=== PATIENT | male | born 1990 | race African-American/Black ===

== ENCOUNTER 2017-05-09 09:38 | Emergency (ER) | payer SELFPAY ==
--- NOTE | 2017-05-09 11:34 | EDPHYS ---
Physician Documentation [facility] Name: Delfin Gilliam Age: 26 yrs Sex: Male : 1990 Arrival Date: 05/09/2017 Time: 09:40 Bed 18 Private MD: ED Physician Huey Paul HPI: 05/09 10:25 This 26 yrs old Black Male presents to ER via Ambulatory with complaints of Sore cp Throat, Cough. 10:25 The patient presents with sore throat. The patient describes throat pain as constant. cp Onset: The symptoms/episode began/occurred 1 week(s) ago. Severity of symptoms: in the emergency department the symptoms are unchanged, despite home interventions. Historical: - Allergies: 09:56 No Known Allergies; ss - Home Meds: 09:56 None [Active]; ss - PMHx: :56 None; ss - PSHx: 09:56 None; ss - Immunization history:: Adult Immunizations unknown. - Social history:: Smoking status: Patient uses tobacco products, smokes one-half pack cigarettes per day. ROS: 10:30 Constitutional: Negative for body aches, chills, fever, poor PO intake. cp 10:30 Eyes: Negative for injury, pain, redness, and discharge. cp 10:30 ENT: Positive for sinus congestion, sore throat, Negative for drainage from ear(s), ear pain, difficulty swallowing, difficulty handling secretions. 10:30 Cardiovascular: Negative for chest pain, edema, palpitations. 10:30 Respiratory: Positive for cough, with green sputum, Negative for shortness of breath, wheezing. 10:30 Abdomen/GI: Negative for abdominal pain, vomiting, diarrhea, constipation, black/tarry stool, rectal bleeding. 10:30 Skin: Negative for cellulitis, rash. 10:30 Neuro: Negative for altered mental status, weakness. 10:30 All other systems are negative. Exam: 10:35 Constitutional: The patient appears in no acute distress, alert, awake, non-toxic, well cp developed, well nourished. 10:35 Head/face: Sinus tenderness, that is mild, is located over the right frontal sinus, cp left frontal sinus, right maxillary sinus and left maxillary sinus. 10:35 Eyes: Periorbital structures: appear normal, Pupils: equal, round, and reactive to light and accomodation, Conjunctiva: normal, no exudate, no injection, Sclera: no appreciated abnormality, Lids and lashes: appear normal, bilaterally. 10:35 ENT: External ear(s): are unremarkable, Ear canal(s): are normal, clear, TM's: bulging, is not appreciated, bilaterally, dullness, bilaterally, erythema, is not appreciated, bilaterally, Nose: is normal, Mouth: Lips: moist, Oral mucosa: moist, Posterior pharynx: Airway: no evidence of obstruction, patent, Tonsils: with erythema, no exudate, Uvula: midline, swelling, is not appreciated, erythema, that is mild, exudate, is not appreciated, Voice: is normal. 10:35 Neck: External neck: is normal, ROM/movement: is normal, is supple, without pain, no range of motions limitations, no meningismus, no nuchal rigidity. 10:35 Chest/axilla: Inspection: normal, Palpation: is normal, no crepitus, no tenderness. 10:35 Cardiovascular: Rate: normal, Rhythm: regular. 10:35 Respiratory: the patient does not display signs of respiratory distress, Respirations: normal, no use of accessory muscles, no retractions, no splinting, no tachypnea, labored breathing, is not present, Breath sounds: are clear throughout, no decreased breath sounds, no stridor, no wheezing. 10:35 Skin: cellulitis, is not appreciated, no rash present. Vital Signs: 09:56 BP 139 / 87; Pulse 82; Resp 16; Temp 98.3(TE); Pulse Ox 99% on R/A; Weight 113.4 kg; ss Height 5 ft. 10 in. (177.80 cm); Pain 0/10; 11:14 BP 137 / 83; Pulse 87; Resp 16; Temp 98.1(O); Pulse Ox 99% on R/A; Pain 0/10; em 09:56 Body Mass Index 35.87 (113.40 kg, 177.80 cm) ss MDM: 10:03 Patient medically screened. 11:30 Data reviewed: vital signs, nurses notes, lab test result(s), and as a result, I will cp discharge patient. 05/09 10:25 Order name: Strep; Complete Time: 11:14 cp 05/09 11:14 Interpretation: Reviewed. 05/09 11:01 Order name: Throat Culture EDMS Administered Medications: No medications were administered Disposition: 12:30 Chart complete. Disposition: 05/09/17 11:33 Discharged to Home. Impression: Cough, Acute sinusitis. - Condition is Stable. - Discharge Instructions: Sinusitis, Adult, Cough, Adult. - Prescriptions for Tessalon Perles 100 mg Oral Capsule - take 1 capsule by ORAL route every 8 hours As needed; 15 capsule. Zithromax Z- Lucio 250 mg Oral Tablet - take 1 tablet by ORAL route as directed for 5 days Day 1 - take two (2) tablets one time. Day 2, 3, 4 , 5 take one (1) tablet once daily.; 6 tablet. Prednisone 20 mg Oral Tablet - take 2 tablet by ORAL route once daily for 5 days; 10 tablet. - Work release form, Medication Reconciliation Form, Thank You Letter, Antibiotic Education, Prescription Opioid Use form. - Follow up: Private Physician; When: 2 - 3 days; Reason: Recheck today's complaints. - Problem is new. - Symptoms are unchanged. Addendum: 05/10/2017 13:22 Co-signature as Attending Physician, Huey Paul MD. g s Signatures: Dispatcher [employer] [facility] Tomasz Silva, DIGITAL FORENSICS EXAMINER DIGITAL FORENSICS EXAMINER Shahida Young, YARI RN Bola Barclay PA PA Huey Morales MD MD
--- NOTE | 2017-05-09 11:34 | ER ---
Nurse's Notes [facility] Name: Delfin Gilliam Age: 26 yrs Sex: Male : 1990 Arrival Date: 05/09/2017 Time: 09:40 Bed 18 Private MD: Diagnosis: Cough;Acute sinusitis Presentation: 05/09 09:55 Presenting complaint: Patient states: sore throat, cough, nasal congestion x 1 week. ss Unknown fever. Transition of care: patient was not received from another setting of care. Onset of symptoms was May 01, 2017. Care prior to arrival: None. 09:55 Method Of Arrival: Ambulatory ss 09:55 Acuity: JASON 4 ss Historical: - Allergies: : No Known Allergies; ss - Home Meds: :56 None [Active]; ss - PMHx: :56 None; ss - PSHx: :56 None; ss - Immunization history:: Adult Immunizations unknown. - Social history:: Smoking status: Patient uses tobacco products, smokes one-half pack cigarettes per day. Screenin:40 Abuse screen: Denies threats or abuse. Nutritional screening: No deficits noted. em Tuberculosis screening: No symptoms or risk factors identified. Fall Risk None identified. Assessment: 10:13 General: Appears in no apparent distress. uncomfortable, Behavior is calm, cooperative. em General: Reports having a sore throat for a week, has a cough with green sputum, denies SOB or chest pain. Pain: Complains of pain in throat Pain currently is 8 out of 10 on a pain scale. Quality of pain is described as throbbing, Pain began 1 week ago. Neuro: Level of Consciousness is awake, alert, obeys commands, Oriented to person, place, time, situation. Cardiovascular: Capillary refill < 3 seconds Patient's skin is warm and dry. Respiratory: Airway is patent Respiratory effort is even, unlabored, Respiratory pattern is regular, symmetrical, Breath sounds are clear bilaterally. GI: Abdomen is round non-distended. : No signs and/or symptoms were reported regarding the genitourinary system. EENT: Oral mucosa is moist. Throat is clear is reddened has enlarged tonsils bilaterally. Derm: Skin is intact, Skin is pink, warm \T\ dry. Musculoskeletal: Range of motion: intact in all extremities. 10:50 Reassessment: Patient appears in no apparent distress at this time. Patient and/or iw family updated on plan of care and expected duration. Pain level reassessed. Patient is alert, oriented x 3, equal unlabored respirations, skin warm/dry/pink. I agree with above assessment by Tomasz Silva LVN. 11:34 Reassessment: Patient appears in no apparent distress at this time. Patient and/or em family updated on plan of care and expected duration. Pain level reassessed. Patient is alert, oriented x 3, equal unlabored respirations, skin warm/dry/pink. Patient states feeling better. Vital Signs: 09:56 BP 139 / 87; Pulse 82; Resp 16; Temp 98.3(TE); Pulse Ox 99% on R/A; Weight 113.4 kg; ss Height 5 ft. 10 in. (177.80 cm); Pain 0/10; 11:14 BP 137 / 83; Pulse 87; Resp 16; Temp 98.1(O); Pulse Ox 99% on R/A; Pain 0/10; em 09:56 Body Mass Index 35.87 (113.40 kg, 177.80 cm) ED Course: 09:40 Patient arrived in ED. sb2 09:56 Triage completed. 09:56 Arm band placed on right wrist. 09:59 Tomasz Silva LVN is Primary Nurse. em 10:02 Bola Vences PA is PHCP. cp 10:02 Huey Paul MD is Attending Physician. cp 10:27 Strep swab sent to lab. 5 10:28 Strep Sent. 5 10:40 Patient has correct armband on for positive identification. Bed in low position. Call em light in reach. Side rails up X2. Adult w/ patient. 10:40 No provider procedures requiring assistance completed. Patient did not have IV access em during this emergency room visit. Administered Medications: No medications were administered Outcome: 11:33 Discharge ordered by . cp 12:01 Discharged to home ambulatory. em 12:01 Condition: good 12:01 Discharge instructions given to patient, Instructed on discharge instructions, follow up and referral plans. medication usage, Demonstrated understanding of instructions, follow-up care, medications, Prescriptions given X 3. 12:03 Patient left the ED. em Signatures: Tomasz Silva LVN LVN em Estrella Arce, RN RN iw Shahida Mendoza RN RN ss Bola Vences PA PA cp Martinez, Maria [facility] Liz Khoury [facility]
== END 2017-05-09 12:03 | disposition home or self-care (01) ==
LOC: ER 09:38
DX: J01.90 Acute sinusitis, unspecified (principal); F17.210 Nicotine dependence, cigarettes, uncomplicated
CPT/HCPCS: 87070; 87081; 99283